=== PATIENT | female | born 1990 | race African-American/Black ===

== ENCOUNTER 2017-07-01 12:50 | Emergency (ER) | payer OTHER ==
[2017-07-01 14:49] LABS: BILIRUBIN,URINE NEGATIVE (NEG); CLARITY,URINE CLEAR; COLOR,URINE YELLOW; GLUCOSE,URINE NEGATIVE (NEG); NITRITE,URINE NEGATIVE (NEG); PH,URINE 7.5; PROTEIN,URINE NEGATIVE (NEG-TRACE)
[2017-07-01 14:59] LABS: BACTERIA,URINE 0 /HPF (0-FEW); RBC,URINE 0 /HPF (0-2); SQUAMOUS EPITHELIAL CELL,UR FEW /LPF
[2017-07-01 15:00] LABS: TRICHOMONAS,URINE PRESENT
[2017-07-01] MEDS: metroNIDAZOLE 500 MG TABLET PO ×2 (15:22)
[2017-07-01] MEDS: predniSONE 20 MG TABLET PO ×2 (15:22)
[2017-07-01] MEDS: AZITHROMYCIN 250 MG TABLET. PO ×2 (15:22)
[2017-07-01] MEDS: cefTRIAXone IM 250 MG VIAL IM ×2 (15:22)
[2017-07-02 19:17] LABS: CHLAMYDIA PROBE Negative (Negative); GC PROBE Negative (Negative)
== END 2017-07-01 15:41 | disposition home or self-care (01) ==
LOC: ER 12:50
DX: A59.01 Trichomonal vulvovaginitis (principal); Z88.0 Allergy status to penicillin; Z88.2 Allergy status to sulfonamides; Z88.1 Allergy status to other antibiotic agents
CPT/HCPCS: 81001; 87491; 87591; 96372; 99284-25; J0696; J7512; Q0111; Q0144